=== PATIENT | female | born 1950 | race Caucasian/White ===

== ENCOUNTER 2019-02-19 18:23 | Inpatient (IN) | payer OTHER ==
[~2019-02-19] VITALS: Ht 160 cm; Wt 54.1 kg
[2019-02-19] MEDS ORDERED: ACETAMINOPHEN 325 MG TABLET PO PRN (18:30)
[2019-02-19] MEDS ORDERED: METHYL SALICYLATE/MENTHOL TOPICAL OINTMENT 57GM TUBE. TP PRN (18:30)
[2019-02-19] MEDS ORDERED: MAGNESIUM HYDROXIDE 2,400 MG/30 ML ORAL.SUSP. PO PRN (18:30)
[2019-02-19] MEDS ORDERED: TRAM50TA PO (18:42)
[2019-02-19] MEDS ORDERED: FAMO20TA5 PO (18:42)
[2019-02-19] MEDS ORDERED: PNV1TABL31 PO (18:42)
[2019-02-19] MEDS ORDERED: traZODone 50 MG TABLET. PO PRN ×2 (19:45→20:00)
[2019-02-19 23:11] LABS: BILIRUBIN,URINE NEG (NEG); CLARITY,URINE CLOUDY; COLOR,URINE STRAW; GLUCOSE,URINE NEG (NEG)
[2019-02-19 23:12] LABS: BACTERIA,URINE MANY /HPF (0-FEW); NITRITE,URINE NEG (NEG); SQUAMOUS EPITHELIAL CELL,UR FEW /LPF; UROBILINOGEN,URINE 0.2 mg/dL (0.2 mg/dL)
--- NOTE | 2019-02-19 23:16 | PDOC ---
Exam Note: Chetan Note: Please also refer to the separate dictated note~for this date of service dictated separately. Discussed the patient with Nursing staff reviewed the chart.~Reviewed interim history and current functioning. Reviewed vital signs,~Labs/ Radiology~and current medications noted below. Continue current treatment with the changes noted in the dictated addendum note Assessment: Labs: Laboratory Tests Test 02/19/19 20:01 Urine Collection Type Unknown Urine Color Straw Urine Clarity Cloudy Urine pH 6.0 Urine Specific [place] 1.010 Urine Protein 30 mg/dl (NEG-TRACE) Urine Glucose (UA) Neg mg/dL (NEG) Urine Ketones (Stick) Neg mg/dL (NEG) Urine Blood Small (NEG) Urine Nitrite Neg (NEG) Urine Bilirubin Neg (NEG) Urine Urobilinogen Dipstick 0.2 mg/dL (0.2 mg/dL) Urine Leukocyte Esterase Trace (NEG) Urine RBC 3-5 /HPF (0-2) Urine WBC 5-10 /HPF (0-4) Urine Squamous Epithelial Cells Few /LPF Urine Bacteria Many /HPF (0-FEW) Urine Mucus Slight /LPF Current Medications: Meds: Current Medications Medications (Trade) Dose Ordered Sig/Valerie Route PRN Reason Start Time Stop Time Status Last Admin Dose Admin Oxcarbazepine (Trileptal) 300 mg HS PO 02/19/19 21:00 02/19/19 20:18 I have reviewed the current psychotropics carefully including drug interactions. Risk benefit ratio favors no change other than as noted in my dictated progress note. Diagnosis: Problems: (1) Anxiety disorder (2) Bipolar 1 disorder, mixed, moderate (3) Impulse control disorder (4) Psychosis, atypical LADARIUS STANLEY MD Feb 19, 2019 23:16
[2019-02-19 23:17] VITALS: BP 135/85
[2019-02-20 05:53] VITALS: BP 128/81
[2019-02-20] MEDS: PRENATAL MULTIVITAMIN TABLET. PO SCH (08:10)
[2019-02-20] MEDS: FAMOTIDINE 20 MG TABLET PO SCH (08:10)
[2019-02-20 08:44] LABS: BASO # 0.3 x10^3/uL (0.0-0.2); BASO % 4 % (0-3); EOS # 0.2 x10^3/uL (0.0-0.7); EOS % 3 % (0-3); HEMATOCRIT 36.5 % (36.0-47.0); HEMOGLOBIN 11.7 g/dL (12.0-15.5); LYMPH # 1.8 x10^3/uL (1.0-4.8); LYMPH % 23 % (24-48); MEAN CORPUSCULAR HEMOGLOBIN 29 pg (25-35); MEAN CORPUSCULAR HGB CONC 32 g/dL (31-37); MEAN CORPUSCULAR VOLUME 91 fL (79-100); MONO # 0.5 x10^3/uL (0.0-1.1); MONO % 7 % (0-9); NEUT # 5.2 x10^3uL (1.8-7.7); NEUT % 64 % (31-73); PLATELET COUNT 285 x10^3/uL (140-400); RED BLOOD COUNT 4.03 x10^6/uL (3.50-5.40); RED CELL DISTRIBUTION WIDTH 15.9 % (11.5-14.5); WHITE BLOOD COUNT 8.1 x10^3/uL (4.0-11.0)
[2019-02-20 09:03] LABS: ALBUMIN 3.2 g/dL (3.4-5.0); ALBUMIN/GLOBULIN RATIO 0.8 (1.0-1.7); CALCIUM 9.2 mg/dL (8.5-10.1); CREATININE 1.9 mg/dL (0.6-1.0); GFR 26.1; TOTAL BILIRUBIN 0.3 mg/dL (0.2-1.0); TOTAL PROTEIN 7.3 g/dL (6.4-8.2)
[2019-02-20] MEDS: traMADol 50 MG TABLET PO PRN (09:57)
[2019-02-20 12:06] LABS: THYROXINE 5.6 ug/dL (4.5-12.0)
[2019-02-20 12:20] LABS: THYROID STIM HORMONE (TSH) 2.285 uIU/mL (0.358-3.740)
[2019-02-20 15:44] VITALS: BP 126/77
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
--- NOTE | 2019-02-20 20:34 | PDOC ---
Exam Note: Chetan Note: Please also refer to the separate dictated note~for this date of service dictated separately.~Patient seen individually. Discussed the patient with Nursing staff reviewed the chart.~Reviewed interim history and current functioning. Reviewed vital signs,~Labs/ Radiology~and current medications noted below. Continue current treatment with the changes noted in the dictated addendum note Assessment: Vital Signs/I&O: Vital Signs Date Time Temp Pulse Resp B/P (MAP) Pulse Ox O2 Delivery O2 Flow Rate FiO2 02/20/19 15:44 97.6 71 18 126/77 (93) 96 02/20/19 05:53 Room Air I & O 02/19/19 02/19/19 02/20/19 15:00 23:00 07:00 Intake Total 120 ml Balance 120 ml Labs: Laboratory Tests Test 02/20/19 07:45 White Blood Count 8.1 x10^3/uL (4.0-11.0) Red Blood Count 4.03 x10^6/uL (3.50-5.40) Hemoglobin 11.7 g/dL (12.0-15.5) L Hematocrit 36.5 % (36.0-47.0) Mean Corpuscular Volume 91 fL (79-100) Mean Corpuscular Hemoglobin 29 pg (25-35) Mean Corpuscular Hemoglobin Concent 32 g/dL (31-37) Red Cell Distribution Width 15.9 % (11.5-14.5) H Platelet Count 285 x10^3/uL (140-400) Neutrophils (%) (Auto) 64 % (31-73) Lymphocytes (%) (Auto) 23 % (24-48) L Monocytes (%) (Auto) 7 % (0-9) Eosinophils (%) (Auto) 3 % (0-3) Basophils (%) (Auto) 4 % (0-3) H Neutrophils # (Auto) 5.2 x10^3uL (1.8-7.7) Lymphocytes # (Auto) 1.8 x10^3/uL (1.0-4.8) Monocytes # (Auto) 0.5 x10^3/uL (0.0-1.1) Eosinophils # (Auto) 0.2 x10^3/uL (0.0-0.7) Basophils # (Auto) 0.3 x10^3/uL (0.0-0.2) H Sodium Level 148 mmol/L (136-145) H Potassium Level 4.0 mmol/L (3.5-5.1) Chloride Level 112 mmol/L (98-107) H Carbon Dioxide Level 23 mmol/L (21-32) Anion Gap 13 (6-14) Blood Urea Nitrogen 33 mg/dL (7-20) H Creatinine 1.9 mg/dL (0.6-1.0) H Estimated GFR (Cockcroft-Gault) 26.1 BUN/Creatinine Ratio 17 (6-20) Glucose Level 119 mg/dL (70-99) H Calcium Level 9.2 mg/dL (8.5-10.1) Magnesium Level 2.0 mg/dL (1.8-2.4) Iron Level 86 ug/dL (50-170) Total Iron Binding Capacity 232 ug/dL (250-450) L Iron Saturation 37 % (15-34) H Total Bilirubin 0.3 mg/dL (0.2-1.0) Aspartate Amino Transferase (AST) 16 U/L (15-37) Alanine Aminotransferase (ALT) 11 U/L (14-59) L Alkaline Phosphatase 99 U/L (46-116) Total Protein 7.3 g/dL (6.4-8.2) Albumin 3.2 g/dL (3.4-5.0) L Albumin/Globulin Ratio 0.8 (1.0-1.7) L Triglycerides Level 58 mg/dL (0-150) Cholesterol Level 166 mg/dL (0-200) LDL Cholesterol, Calculated 97 mg/dL (0-100) VLDL Cholesterol, Calculated 11 mg/dL (0-40) Non-HDL Cholesterol Calculated 108 mg/dL (0-129) HDL Cholesterol 58 mg/dL (40-60) Cholesterol/HDL Ratio 2.0 Thyroid Stimulating Hormone (TSH) 2.285 uIU/mL (0.358-3.740) Thyroxine (T4) 5.6 ug/dL (4.5-12.0) Total Triiodothyronine (TT3) 76 ng/dL (71-180) Current Medications: Meds: Current Medications Medications (Trade) Dose Ordered Sig/Valerie Route PRN Reason Start Time Stop Time Status Last Admin Dose Admin Famotidine (Pepcid) 20 mg DAILY PO 02/20/19 09:00 02/20/19 08:10 Multivit/ Folic Acid/Iron (Multivitamin ) 1 tab DAILY PO 02/20/19 09:00 02/20/19 08:10 Oxcarbazepine (Trileptal) 300 mg HS PO 02/19/19 21:00 02/20/19 19:28 I have reviewed the current psychotropics carefully including drug interactions. Risk benefit ratio favors no change other than as noted in my dictated progress note. Diagnosis: Problems: (1) Anxiety disorder (2) Bipolar 1 disorder, mixed, moderate (3) Impulse control disorder (4) Psychosis, atypical LADARIUS STANLEY MD Feb 20, 2019 20:34
[2019-02-20 23:11] LABS: HEMOGLOBIN A1C 5.6 % (4.8-5.6)
--- NOTE | 2019-02-21 03:29 | PN ---
DATE: 02/20/2019 PSYCHIATRIC PROGRESS NOTE This note covers elements not covered in my initial note of 02/20/2019. SUBJECTIVE: I met with the patient evening of 02/20/2019. Overall, the patient remains somewhat anxious, restless, at times withdrawn. REVIEW OF SYSTEMS: No CV, , pulmonary, eye system symptoms on review. MENTAL STATUS EXAM: Reasonably oriented. Speech is coherent, abstraction fair, computation impaired, language function intact, attention span short. Mood and affect remain somewhat withdrawn. LABORATORY DATA: Reviewed. IMPRESSION: Bipolar disorder, mixed with psychotic features; anxiety disorder, unspecified. Rest unchanged. PLAN: Continue Trileptal and the rest of the psychotropics as mentioned previously in past psychiatric records, then decide on further interventions. MAN Olivia STANLEY MD DR: SHANTEL/laura JOB#: [id number] / [id number]
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
[2019-02-21 05:25] VITALS: BP 123/77
[2019-02-21] MEDS: PRENATAL MULTIVITAMIN TABLET. PO SCH (07:57)
[2019-02-21] MEDS: FAMOTIDINE 20 MG TABLET PO SCH (07:57)
[2019-02-21] MEDS: traMADol 50 MG TABLET PO PRN ×2 (08:25→17:50)
[2019-02-21] MEDS: MAG HYDROX/AL HYDROX/SIMETH 30 ML ORAL.SUSP PO PRN (09:32)
[2019-02-21] MEDS ORDERED: TROLAMINE SALICYLATE 10% TOPICAL CREAM 85GM JAR. TP PRN ×3 (10:00→22:38)
[2019-02-21 16:21] VITALS: BP 128/79
--- NOTE | 2019-02-21 20:33 | PDOC ---
Exam Note: Chetan Note: Please also refer to the separate dictated note~for this date of service dictated separately.~Patient seen individually. Discussed the patient with Nursing staff reviewed the chart.~Reviewed interim history and current functioning. Reviewed vital signs,~Labs/ Radiology~and current medications noted below. Continue current treatment with the changes noted in the dictated addendum note Assessment: Vital Signs/I&O: Vital Signs Date Time Temp Pulse Resp B/P (MAP) Pulse Ox O2 Delivery O2 Flow Rate FiO2 02/21/19 18:50 100 Room Air 02/21/19 16:21 98.3 88 18 128/79 (95) I & O 02/20/19 02/20/19 02/21/19 15:00 23:00 07:00 Intake Total 480 ml 480 ml Balance 480 ml 480 ml Current Medications: Meds: Current Medications Medications (Trade) Dose Ordered Sig/Valerie Route PRN Reason Start Time Stop Time Status Last Admin Dose Admin Trolamine Salicylate (Myoplex) 1 adam PRN TID PRN TP ARTHRITIS PAIN 02/21/19 10:00 02/21/19 16:01 I have reviewed the current psychotropics carefully including drug interactions. Risk benefit ratio favors no change other than as noted in my dictated progress note. Diagnosis: Problems: (1) Anxiety disorder (2) Bipolar 1 disorder, mixed, moderate (3) Impulse control disorder (4) Psychosis, atypical LADARIUS STANLEY MD Feb 21, 2019 20:33
[2019-02-22 05:08] VITALS: BP 138/84
[2019-02-22] MEDS: PRENATAL MULTIVITAMIN TABLET. PO SCH (07:58)
[2019-02-22] MEDS: FAMOTIDINE 20 MG TABLET PO SCH (07:58)
[2019-02-22 16:13] VITALS: BP 146/89
--- NOTE | 2019-02-22 20:37 | PDOC ---
Exam Note: Chetan Note: Please also refer to the separate dictated note~for this date of service dictated separately.~Patient seen individually. Discussed the patient with Nursing staff reviewed the chart.~Reviewed interim history and current functioning. Reviewed vital signs,~Labs/ Radiology~and current medications noted below. Continue current treatment with the changes noted in the dictated addendum note Assessment: Vital Signs/I&O: Vital Signs Date Time Temp Pulse Resp B/P (MAP) Pulse Ox O2 Delivery O2 Flow Rate FiO2 02/22/19 16:13 98.4 99 16 146/89 (108) 98 02/21/19 18:50 Room Air I & O 02/21/19 02/21/19 02/22/19 15:00 23:00 07:00 Intake Total 960 ml 480 ml Balance 960 ml 480 ml Current Medications: I have reviewed the current psychotropics carefully including drug interactions. Risk benefit ratio favors no change other than as noted in my dictated progress note. Diagnosis: Problems: (1) Anxiety disorder (2) Bipolar 1 disorder, mixed, moderate (3) Impulse control disorder (4) Psychosis, atypical LADARIUS STANLEY MD Feb 22, 2019 20:37
[2019-02-22] MEDS: CHLORHEXIDINE 0.12% 15 ML MOUTHWASH. SWSP SCH (20:46)
[2019-02-23 05:20] VITALS: BP 149/81
[2019-02-23] MEDS: PRENATAL MULTIVITAMIN TABLET. PO SCH (08:22)
[2019-02-23] MEDS: FAMOTIDINE 20 MG TABLET PO SCH (08:22)
[2019-02-23] MEDS: CHLORHEXIDINE 0.12% 15 ML MOUTHWASH. SWSP SCH ×2 (08:22→20:37)
[2019-02-23] MEDS: traMADol 50 MG TABLET PO PRN ×2 (08:40→20:37)
[2019-02-23] MEDS ORDERED: levoFLOXacin 500 MG TABLET PO SCH (09:00)
[2019-02-23] MEDS: LACTOBACILLUS RHAMNOSUS GG 1 CAPSULE. PO SCH ×2 (11:09→20:36)
[2019-02-23 15:47] VITALS: BP 114/62
[2019-02-23] MEDS: QUEtiapine 25 MG TABLET. PO SCH (20:36)
--- NOTE | 2019-02-23 20:42 | PDOC ---
Exam Note: Chetan Note: Please also refer to the separate dictated note~for this date of service dictated separately.~Patient seen individually. Discussed the patient with Nursing staff reviewed the chart.~Reviewed interim history and current functioning. Reviewed vital signs,~Labs/ Radiology~and current medications noted below. Continue current treatment with the changes noted in the dictated addendum note Assessment: Vital Signs/I&O: Vital Signs Date Time Temp Pulse Resp B/P (MAP) Pulse Ox O2 Delivery O2 Flow Rate FiO2 02/23/19 20:37 18 Room Air 02/23/19 15:47 98.1 87 114/62 (79) 98 I & O 02/22/19 02/22/19 02/23/19 15:00 23:00 07:00 Intake Total 840 ml 240 ml 240 ml Balance 840 ml 240 ml 240 ml Current Medications: Meds: Current Medications Medications (Trade) Dose Ordered Sig/Valerie Route PRN Reason Start Time Stop Time Status Last Admin Dose Admin Chlorhexidine Gluconate (Peridex) 15 ml BID SWSP 02/22/19 21:00 02/23/19 20:37 Levofloxacin (Levaquin) 500 mg DAILY06 PO 02/23/19 09:00 02/23/19 08:57 DC 02/23/19 08:40 Lactobacillus Rhamnosus (Culturelle) 1 cap BID PO 02/23/19 09:00 02/23/19 20:36 Quetiapine Fumarate (SEROquel) 25 mg QHS PO 02/23/19 21:00 02/23/19 20:36 I have reviewed the current psychotropics carefully including drug interactions. Risk benefit ratio favors no change other than as noted in my dictated progress note. Diagnosis: Problems: (1) Anxiety disorder (2) Bipolar 1 disorder, mixed, moderate (3) Impulse control disorder (4) Psychosis, atypical LADARIUS STANLEY MD Feb 23, 2019 20:42
[2019-02-23] MEDS ORDERED: LACTOBACILLUS RHAMNOSUS GG 1 CAPSULE. PO SCH (21:00)
--- NOTE | 2019-02-24 02:16 | PN ---
DATE: 02/21/2019 PSYCHIATRIC PROGRESS NOTE This late entry, 02/21/2019, covers elements not covered in my initial note. SUBJECTIVE: Per Mariama RN, the patient slept reasonably previous night. She is doing about the same. Social, did attend physical therapy, complains of pain, received Ultram in the morning and Aspercreme. REVIEW OF SYSTEMS: No CV, , pulmonary, eye system symptoms on review. MENTAL STATUS EXAM: Reasonably oriented. Speech coherent, can be little pressured. Abstraction fair, computation impaired, language function intact, attention span short. Mood and affect remain somewhat anxious, dysphoric at times, obsessing about circumstances prompting admission and does not feel safe returning home with her significant other. LABORATORY DATA: Reviewed. IMPRESSION: Bipolar disorder, mixed; anxiety disorder, unspecified. Rest unchanged. PLAN: No change from initial note. May need to increase Trileptal further gradually. LADARIUS STANLEY MD DR: SHANTEL/laura JOB#: [id number] / [id number]
--- NOTE | 2019-02-24 02:53 | PN ---
DATE: 02/22/2019 PSYCHIATRIC PROGRESS NOTE This late entry 02/22/2019 covers elements not covered in my initial note. SUBJECTIVE: I met with the patient evening of 02/22/2019. The patient slept 6-3/4 hours previous night. She does have a UTI on 100,000 E. coli and is being started on Levaquin for this. She had many questions about Trileptal making her sedated during the day, felt there was an interaction with her Ultram and her other medications, refusing to take it. I had a lengthy discussion with her, but for now we will stop it. REVIEW OF SYSTEMS: No CV, , pulmonary, eye system symptoms on review, does complain of pain as noted. MENTAL STATUS EXAM: Reasonably oriented. Speech coherent, abstraction fair, computation impaired. Mood is somewhat tearful, anxious. No active suicidal or homicidal ideation. LABORATORY DATA: Reviewed. IMPRESSION: Unchanged from initial note. PLAN: As noted above, stop the Trileptal. Treat the UTI. Consider Seroquel as a mood stabilizer. We will reassess on February 23. LADARIUS STANLEY MD DR: SHANTEL/laura JOB#: [id number] / [id number]
[2019-02-24 05:58] VITALS: BP 127/82
[2019-02-24] MEDS: levoFLOXacin 250 MG TABLET PO SCH (06:02)
[2019-02-24] MEDS: LACTOBACILLUS RHAMNOSUS GG 1 CAPSULE. PO SCH ×2 (08:02→19:31)
[2019-02-24] MEDS: FAMOTIDINE 20 MG TABLET PO SCH (08:03)
[2019-02-24] MEDS: CHLORHEXIDINE 0.12% 15 ML MOUTHWASH. SWSP SCH ×2 (08:03→19:31)
[2019-02-24] MEDS: PRENATAL MULTIVITAMIN TABLET. PO SCH (08:03)
[2019-02-24] MEDS: traMADol 50 MG TABLET PO PRN ×2 (08:03→20:06)
[2019-02-24 16:17] VITALS: BP 125/75
[2019-02-24] MEDS: QUEtiapine 25 MG TABLET. PO SCH (19:31)
[2019-02-24] MEDS: MAG HYDROX/AL HYDROX/SIMETH 30 ML ORAL.SUSP PO PRN (19:39)
--- NOTE | 2019-02-24 20:53 | PDOC ---
Exam Note: Chetan Note: Please also refer to the separate dictated note~for this date of service dictated separately.~Patient seen individually. Discussed the patient with Nursing staff reviewed the chart.~Reviewed interim history and current functioning. Reviewed vital signs,~Labs/ Radiology~and current medications noted below. Continue current treatment with the changes noted in the dictated addendum note Assessment: Vital Signs/I&O: Vital Signs Date Time Temp Pulse Resp B/P (MAP) Pulse Ox O2 Delivery O2 Flow Rate FiO2 02/24/19 20:06 Room Air 02/24/19 16:17 97.5 89 14 125/75 (92) 98 I & O 02/23/19 02/23/19 02/24/19 15:00 23:00 07:00 Intake Total 720 ml 360 ml Balance 720 ml 360 ml Current Medications: Meds: Current Medications Medications (Trade) Dose Ordered Sig/Valerie Route PRN Reason Start Time Stop Time Status Last Admin Dose Admin Levofloxacin (Levaquin) 250 mg DAILY06 PO 02/24/19 06:00 02/27/19 06:00 02/24/19 06:02 Quetiapine Fumarate (SEROquel) 25 mg QHS PO 02/23/19 21:00 02/24/19 19:31 I have reviewed the current psychotropics carefully including drug interactions. Risk benefit ratio favors no change other than as noted in my dictated progress note. Diagnosis: Problems: (1) Anxiety disorder (2) Bipolar 1 disorder, mixed, moderate (3) Impulse control disorder (4) Psychosis, atypical LADARIUS STANLEY MD Feb 24, 2019 20:53
[2019-02-25] MEDS: levoFLOXacin 250 MG TABLET PO SCH (05:48)
[2019-02-25] MEDS: traMADol 50 MG TABLET PO PRN ×2 (05:49→20:37)
[2019-02-25 06:01] VITALS: BP 121/82
[2019-02-25] MEDS: LACTOBACILLUS RHAMNOSUS GG 1 CAPSULE. PO SCH ×2 (08:05→20:36)
[2019-02-25] MEDS: CHLORHEXIDINE 0.12% 15 ML MOUTHWASH. SWSP SCH ×2 (08:05→20:38)
[2019-02-25] MEDS: PRENATAL MULTIVITAMIN TABLET. PO SCH (08:05)
[2019-02-25] MEDS: FAMOTIDINE 20 MG TABLET PO SCH (08:05)
[2019-02-25 16:02] VITALS: BP 127/82
--- NOTE | 2019-02-25 20:26 | PDOC ---
Exam Note: Chetan Note: Please also refer to the separate dictated note~for this date of service dictated separately.~Patient seen individually. Discussed the patient with Nursing staff reviewed the chart.~Reviewed interim history and current functioning. Reviewed vital signs,~Labs/ Radiology~and current medications noted below. Continue current treatment with the changes noted in the dictated addendum note Assessment: Vital Signs/I&O: Vital Signs Date Time Temp Pulse Resp B/P (MAP) Pulse Ox O2 Delivery O2 Flow Rate FiO2 02/25/19 16:02 97.9 95 16 127/82 (97) 97 02/24/19 20:06 Room Air I & O 02/24/19 02/24/19 02/25/19 15:00 23:00 07:00 Intake Total 480 ml 240 ml 420 ml Balance 480 ml 240 ml 420 ml Current Medications: I have reviewed the current psychotropics carefully including drug interactions. Risk benefit ratio favors no change other than as noted in my dictated progress note. Diagnosis: Problems: (1) Anxiety disorder (2) Bipolar 1 disorder, mixed, moderate (3) Impulse control disorder (4) Psychosis, atypical LADARIUS STANLEY MD Feb 25, 2019 20:26
[2019-02-25] MEDS: QUEtiapine 25 MG TABLET. PO SCH (20:37)
--- NOTE | 2019-02-26 01:11 | PN ---
DATE: 02/23/2019 PSYCHIATRIC PROGRESS NOTE This late entry 02/23/2019 covers the elements not covered in my initial note. SUBJECTIVE: I met with the patient in the evening of 02/23/2019. The patient slept 6-3/4 hours previous night per PALMIRA Cook. At times, she has been somewhat tearful. We did stop the Trileptal because of complaints of daytime sedation and I had a lengthy discussion with her about this. REVIEW OF SYSTEMS: No CV, , pulmonary, eye system symptoms on review. MENTAL STATUS EXAM: The patient is reasonably oriented. Speech is coherent, abstraction fair, computation impaired, language function intact. She is still expressed a lot of apprehension about returning home with her significant other, since she has significant concerns by social service staff on this arrangement. There is a question she may be evicted as well. REVIEW OF SYSTEMS: No CV, , pulmonary, eye system symptoms on review. MENTAL STATUS EXAM: Speech coherent, abstraction fair, computation impaired. Mood is somewhat dysphoric, anxious. No active suicidal or homicidal ideation. LABORATORY DATA: Reviewed. IMPRESSION: Unchanged from initial note. PLAN: Given the mood lability; history of bipolar disorder, mild paranoia, we will go ahead and start her on Seroquel 25 mg at bedtime and adjust as clinically indicated. MAN Olivia STANLEY MD DR: SHANTEL/laura JOB#: [id number] / [id number]
--- NOTE | 2019-02-26 01:22 | PN ---
DATE: 02/24/2019 PSYCHIATRIC PROGRESS NOTE This late entry 02/24/2019 covers the elements not covered in my initial note. SUBJECTIVE: I met with the patient in the evening of 02/24/2019 and staffed a treatment team meeting with the entire team morning of 02/24/2019. Appetite 100%, sleeping 6-7 hours, somewhat anxious, social service staff described interaction with the patient's significant other and placement options being assessed by social service staff including outpatient treatment options. REVIEW OF SYSTEMS: No CV, , pulmonary, eye system symptoms on review. MENTAL STATUS EXAM: Reasonably oriented. Speech is coherent, abstraction fair, computation impaired, language function intact. Mood is somewhat dysphoric. No suicidal ideation. LABORATORY DATA: Reviewed. IMPRESSION: Bipolar disorder, unspecified; anxiety disorder, unspecified. Rest unchanged. PLAN: Continue Seroquel 25 mg at bedtime, may need to increase this if clinically indicated. MAN Olivia STANLEY MD DR: SHANTEL/laura JOB#: [id number] / [id number]
[2019-02-26 05:34] VITALS: BP 116/74
[2019-02-26] MEDS: levoFLOXacin 250 MG TABLET PO SCH (05:47)
[2019-02-26] MEDS: FAMOTIDINE 20 MG TABLET PO SCH (08:15)
[2019-02-26] MEDS: CHLORHEXIDINE 0.12% 15 ML MOUTHWASH. SWSP SCH ×2 (08:15→20:24)
[2019-02-26] MEDS: LACTOBACILLUS RHAMNOSUS GG 1 CAPSULE. PO SCH ×2 (08:16→20:24)
[2019-02-26] MEDS: PRENATAL MULTIVITAMIN TABLET. PO SCH (08:16)
[2019-02-26] MEDS ORDERED: ONDANSETRON ODT 4 MG TAB.RAPDIS PO PRN (10:45)
[2019-02-26 15:47] VITALS: BP 129/82
[2019-02-26] MEDS: QUEtiapine 25 MG TABLET. PO SCH (20:24)
[2019-02-26] MEDS: traMADol 50 MG TABLET PO PRN (20:27)
[2019-02-27 06:01] VITALS: BP 136/76
[2019-02-27] MEDS: levoFLOXacin 250 MG TABLET PO SCH (06:02)
[2019-02-27] MEDS: traMADol 50 MG TABLET PO PRN (06:02)
[2019-02-27 07:26] LABS: BASO % 1 % (0-3); EOS # 0.2 x10^3/uL (0.0-0.7); EOS % 2 % (0-3); HEMATOCRIT 36.6 % (36.0-47.0); HEMOGLOBIN 11.9 g/dL (12.0-15.5); LYMPH # 2.3 x10^3/uL (1.0-4.8); LYMPH % 27 % (24-48); MEAN CORPUSCULAR HEMOGLOBIN 30 pg (25-35); MEAN CORPUSCULAR HGB CONC 33 g/dL (31-37); MEAN CORPUSCULAR VOLUME 91 fL (79-100); MONO # 0.5 x10^3/uL (0.0-1.1); MONO % 6 % (0-9); NEUT # 5.4 x10^3uL (1.8-7.7); NEUT % 63 % (31-73); PLATELET COUNT 277 x10^3/uL (140-400); RED BLOOD COUNT 4.03 x10^6/uL (3.50-5.40); RED CELL DISTRIBUTION WIDTH 16.5 % (11.5-14.5); WHITE BLOOD COUNT 8.5 x10^3/uL (4.0-11.0)
[2019-02-27 07:45] LABS: ALBUMIN 3.2 g/dL (3.4-5.0); ALBUMIN/GLOBULIN RATIO 0.8 (1.0-1.7); CALCIUM 8.8 mg/dL (8.5-10.1); CREATININE 2.4 mg/dL (0.6-1.0); POTASSIUM 4.6 mmol/L (3.5-5.1); TOTAL BILIRUBIN 0.3 mg/dL (0.2-1.0); TOTAL PROTEIN 7.2 g/dL (6.4-8.2)
[2019-02-27] MEDS: PRENATAL MULTIVITAMIN TABLET. PO SCH (08:29)
[2019-02-27] MEDS: CHLORHEXIDINE 0.12% 15 ML MOUTHWASH. SWSP SCH ×2 (08:29→20:27)
[2019-02-27] MEDS: FAMOTIDINE 20 MG TABLET PO SCH (08:30)
[2019-02-27] MEDS: LACTOBACILLUS RHAMNOSUS GG 1 CAPSULE. PO SCH ×2 (08:30→20:27)
[2019-02-27 16:12] VITALS: BP 115/68
[2019-02-27] MEDS ORDERED: IV DEXTROSE 5% 1,000 ML IV SCH (17:30)
[2019-02-27] MEDS: IV DEXTROSE 5% 1,000 ML IV SCH (20:00)
[2019-02-27] MEDS: QUEtiapine 25 MG TABLET. PO SCH (20:27)
--- NOTE | 2019-02-27 21:52 | PDOC ---
Exam Note: Chetan Note: This is a late entry for DOS 02/26/2019. Please also refer to the separate dictated note~for this date of service dictated separately.~Patient seen individually. Discussed the patient with Nursing staff reviewed the chart.~Reviewed interim history and current functioning. Reviewed vital signs,~Labs/ Radiology~and current medications noted below. Continue current treatment with the changes noted in the dictated addendum note Assessment: Vital Signs/I&O: Vital Signs Date Time Temp Pulse Resp B/P (MAP) Pulse Ox O2 Delivery O2 Flow Rate FiO2 02/27/19 16:12 98.2 84 18 115/68 (84) 99 02/27/19 06:02 Room Air I & O 02/26/19 02/26/19 02/27/19 15:00 23:00 07:00 Intake Total 480 ml 480 ml 240 ml Balance 480 ml 480 ml 240 ml Labs: Laboratory Tests Test 02/27/19 07:05 White Blood Count 8.5 x10^3/uL (4.0-11.0) Red Blood Count 4.03 x10^6/uL (3.50-5.40) Hemoglobin 11.9 g/dL (12.0-15.5) L Hematocrit 36.6 % (36.0-47.0) Mean Corpuscular Volume 91 fL (79-100) Mean Corpuscular Hemoglobin 30 pg (25-35) Mean Corpuscular Hemoglobin Concent 33 g/dL (31-37) Red Cell Distribution Width 16.5 % (11.5-14.5) H Platelet Count 277 x10^3/uL (140-400) Neutrophils (%) (Auto) 63 % (31-73) Lymphocytes (%) (Auto) 27 % (24-48) Monocytes (%) (Auto) 6 % (0-9) Eosinophils (%) (Auto) 2 % (0-3) Basophils (%) (Auto) 1 % (0-3) Neutrophils # (Auto) 5.4 x10^3uL (1.8-7.7) Lymphocytes # (Auto) 2.3 x10^3/uL (1.0-4.8) Monocytes # (Auto) 0.5 x10^3/uL (0.0-1.1) Eosinophils # (Auto) 0.2 x10^3/uL (0.0-0.7) Basophils # (Auto) 0.0 x10^3/uL (0.0-0.2) Sodium Level 151 mmol/L (136-145) H Potassium Level 4.6 mmol/L (3.5-5.1) Chloride Level 115 mmol/L (98-107) H Carbon Dioxide Level 27 mmol/L (21-32) Anion Gap 9 (6-14) Blood Urea Nitrogen 50 mg/dL (7-20) H Creatinine 2.4 mg/dL (0.6-1.0) H Estimated GFR (Cockcroft-Gault) 20.0 BUN/Creatinine Ratio 21 (6-20) H Glucose Level 109 mg/dL (70-99) H Calcium Level 8.8 mg/dL (8.5-10.1) Total Bilirubin 0.3 mg/dL (0.2-1.0) Aspartate Amino Transferase (AST) 14 U/L (15-37) L Alanine Aminotransferase (ALT) 16 U/L (14-59) Alkaline Phosphatase 99 U/L (46-116) Total Protein 7.2 g/dL (6.4-8.2) Albumin 3.2 g/dL (3.4-5.0) L Albumin/Globulin Ratio 0.8 (1.0-1.7) L Current Medications: Meds: Current Medications Medications (Trade) Dose Ordered Sig/Valerie Route PRN Reason Start Time Stop Time Status Last Admin Dose Admin Dextrose 1,000 ml @ 100 mls/hr Q10H IV 02/27/19 20:00 02/27/19 20:00 I have reviewed the current psychotropics carefully including drug interactions. Risk benefit ratio favors no change other than as noted in my dictated progress note. Diagnosis: Problems: (1) Anxiety disorder (2) Bipolar 1 disorder, mixed, moderate (3) Impulse control disorder (4) Psychosis, atypical LADARIUS STANLEY MD Feb 27, 2019 21:52
[2019-02-28] MEDS ORDERED: ACET325T9 PO (01:49)
[2019-02-28] MEDS ORDERED: CHLO118L3 TP (01:53)
[2019-02-28] MEDS ORDERED: LACT1CAP19 PO (01:55)
[2019-02-28] MEDS ORDERED: MAG30ORA2 PO (02:36)
[2019-02-28] MEDS ORDERED: MAGN2400 PO (02:39)
[2019-02-28] MEDS ORDERED: METH57CR17 TP (02:41)
[2019-02-28] MEDS ORDERED: OLAN5TAB9 PO (02:44)
[2019-02-28] MEDS ORDERED: ONDA4TAB12 PO (02:46)
[2019-02-28] MEDS ORDERED: QUET25TA5 PO (02:47)
[2019-02-28] MEDS ORDERED: TROL35.4 TP (02:48)
[2019-02-28] MEDS ORDERED: TRAM50TA PO (02:49)
[2019-02-28] MEDS ORDERED: TRAZ-120 PO (02:51)
[2019-02-28 05:55] VITALS: BP 118/75
[2019-02-28 07:18] LABS: CALCIUM 8.4 mg/dL (8.5-10.1); CREATININE 2.2 mg/dL (0.6-1.0); GFR 22.1; POTASSIUM 4.2 mmol/L (3.5-5.1)
[2019-02-28] MEDS: CHLORHEXIDINE 0.12% 15 ML MOUTHWASH. SWSP SCH ×2 (08:06→20:36)
[2019-02-28] MEDS: FAMOTIDINE 20 MG TABLET PO SCH (08:06)
[2019-02-28] MEDS: PRENATAL MULTIVITAMIN TABLET. PO SCH (08:06)
[2019-02-28] MEDS: LACTOBACILLUS RHAMNOSUS GG 1 CAPSULE. PO SCH ×2 (08:06→20:35)
[2019-02-28] MEDS: traMADol 50 MG TABLET PO PRN ×2 (09:42→20:36)
--- NOTE | 2019-02-28 12:09 | PN ---
DATE: 02/25/2019 PSYCHIATRIC PROGRESS NOTE This late entry 02/25/2019 covers elements not covered in my initial note. SUBJECTIVE: I met with the patient evening of 02/25/2019. Per PALMIRA Love, the patient slept 7 hours previous night. She has been in the day room attending groups and activities generally doing alright. Denies suicidal ideation. REVIEW OF SYSTEMS: No CV, , pulmonary, eye system symptoms on review. MENTAL STATUS EXAM: Reasonably oriented. Speech is coherent, abstraction fair, computation somewhat impaired, language function intact, attention span fair. Mood and affect is improved. LABORATORY DATA: Reviewed. IMPRESSION: Unchanged from initial note. PLAN: No change from initial note. Continue Seroquel 25 mg at bedtime. Rest unchanged. MAN Olivia STANLEY MD DR: SHANTEL/laura JOB#: [id number] / [id number]
[2019-02-28] MEDS: IV DEXTROSE 5% 1,000 ML IV SCH ×2 (14:02→16:00)
[2019-02-28 16:03] VITALS: BP 129/72
--- NOTE | 2019-02-28 20:25 | PDOC ---
Exam Note: Chetan Note: Please also refer to the separate dictated note~for this date of service dictated separately.~Patient seen individually. Discussed the patient with Nursing staff reviewed the chart.~Reviewed interim history and current functioning. Reviewed vital signs,~Labs/ Radiology~and current medications noted below. Continue current treatment with the changes noted in the dictated addendum note Assessment: Vital Signs/I&O: Vital Signs Date Time Temp Pulse Resp B/P (MAP) Pulse Ox O2 Delivery O2 Flow Rate FiO2 02/28/19 16:03 98.7 77 16 129/72 (91) 100 02/27/19 06:02 Room Air I & O 02/27/19 02/27/19 02/28/19 14:59 22:59 06:59 Intake Total 720 ml 720 ml Balance 720 ml 720 ml Labs: Laboratory Tests Test 02/28/19 06:48 Sodium Level 152 mmol/L (136-145) H Potassium Level 4.2 mmol/L (3.5-5.1) Chloride Level 118 mmol/L (98-107) H Carbon Dioxide Level 25 mmol/L (21-32) Anion Gap 9 (6-14) Blood Urea Nitrogen 40 mg/dL (7-20) H Creatinine 2.2 mg/dL (0.6-1.0) H Estimated GFR (Cockcroft-Gault) 22.1 Glucose Level 104 mg/dL (70-99) H Calcium Level 8.4 mg/dL (8.5-10.1) L Current Medications: I have reviewed the current psychotropics carefully including drug interactions. Risk benefit ratio favors no change other than as noted in my dictated progress note. Diagnosis: Problems: (1) Anxiety disorder (2) Bipolar 1 disorder, mixed, moderate (3) Impulse control disorder (4) Psychosis, atypical LADARIUS STANLEY MD Feb 28, 2019 20:25
[2019-02-28] MEDS: QUEtiapine 25 MG TABLET. PO SCH (20:35)
--- NOTE | 2019-03-01 03:12 | PN ---
DATE: 02/26/2019 PSYCHIATRIC PROGRESS NOTE This late entry 02/26/2019 covers elements not covered in my initial note. SUBJECTIVE: I met with the patient evening of 02/26/2019. The patient slept 7 hours previous night. Overall, she remains somewhat withdrawn, but is doing better. Mood is improved. Denies suicidal ideation. REVIEW OF SYSTEMS: No CV, , pulmonary, eye system symptoms on review. MENTAL STATUS EXAM: Reasonably oriented. Speech is coherent, abstraction fair, computation somewhat impaired. Mood and affect is improved. No suicidal ideation. LABORATORY DATA: Reviewed. IMPRESSION: Unchanged from initial note. PLAN: No change from initial note. MAN Olivia STANLEY MD DR: SHANTEL/laura JOB#: [id number] / [id number]
--- NOTE | 2019-03-01 03:17 | PN ---
DATE: 02/27/2019 PSYCHIATRIC PROGRESS NOTE This late entry 02/27/2019 covers elements not covered in my initial note. SUBJECTIVE: I met with the patient evening of 02/27/2019. The patient has been somewhat dehydrated, he is going to get some IV fluids per Dr. Okeefe and plan is still to transition to outpatient treatment starting 02/28/2019. REVIEW OF SYSTEMS: No CV, , pulmonary, eye system symptoms on review. MENTAL STATUS EXAM: Reasonably oriented. Speech is coherent, abstraction fair, computation impaired, language function intact. No suicidal ideation. Mood and affect is improved. LABORATORY DATA: Reviewed. IMPRESSION: Unchanged from initial note. PLAN: No change from initial note. MAN Olivia STANLEY MD DR: SHANTEL/laura JOB#: [id number] / [id number]
[2019-03-01 05:05] VITALS: BP 127/75
[2019-03-01 07:25] LABS: BASO % 0 % (0-3); EOS # 0.3 x10^3/uL (0.0-0.7); EOS % 4 % (0-3); HEMATOCRIT 34.6 % (36.0-47.0); HEMOGLOBIN 11.1 g/dL (12.0-15.5); LYMPH # 2.6 x10^3/uL (1.0-4.8); LYMPH % 31 % (24-48); MEAN CORPUSCULAR HEMOGLOBIN 30 pg (25-35); MEAN CORPUSCULAR HGB CONC 32 g/dL (31-37); MEAN CORPUSCULAR VOLUME 93 fL (79-100); MONO # 0.7 x10^3/uL (0.0-1.1); MONO % 8 % (0-9); NEUT # 4.7 x10^3uL (1.8-7.7); NEUT % 56 % (31-73); PLATELET COUNT 196 x10^3/uL (140-400); RED BLOOD COUNT 3.73 x10^6/uL (3.50-5.40); RED CELL DISTRIBUTION WIDTH 16.5 % (11.5-14.5); WHITE BLOOD COUNT 8.3 x10^3/uL (4.0-11.0)
[2019-03-01] MEDS: IV DEXTROSE 5% 1,000 ML IV SCH ×2 (07:42→11:09)
[2019-03-01 07:48] LABS: ALBUMIN 2.8 g/dL (3.4-5.0); ALBUMIN/GLOBULIN RATIO 0.8 (1.0-1.7); CALCIUM 8.4 mg/dL (8.5-10.1); CREATININE 1.8 mg/dL (0.6-1.0); GFR 27.8; POTASSIUM 4.4 mmol/L (3.5-5.1); TOTAL BILIRUBIN 0.3 mg/dL (0.2-1.0); TOTAL PROTEIN 6.2 g/dL (6.4-8.2)
[2019-03-01] MEDS: CHLORHEXIDINE 0.12% 15 ML MOUTHWASH. SWSP SCH ×2 (09:00→09:16)
[2019-03-01] MEDS: LACTOBACILLUS RHAMNOSUS GG 1 CAPSULE. PO SCH (09:16)
[2019-03-01] MEDS: FAMOTIDINE 20 MG TABLET PO SCH (09:16)
[2019-03-01] MEDS: PRENATAL MULTIVITAMIN TABLET. PO SCH (09:16)
[2019-03-01 15:48] VITALS: BP 133/81
--- NOTE | 2019-03-01 20:43 | PDOC ---
Exam Note: Chetan Note: Please also refer to the separate dictated note~for this date of service dictated separately.~Patient seen individually. Discussed the patient with Nursing staff reviewed the chart.~Reviewed interim history and current functioning. Reviewed vital signs,~Labs/ Radiology~and current medications noted below. Continue current treatment with the changes noted in the dictated addendum note Assessment: Vital Signs/I&O: Vital Signs Date Time Temp Pulse Resp B/P (MAP) Pulse Ox O2 Delivery O2 Flow Rate FiO2 03/01/19 15:48 98.5 81 18 133/81 (98) 98 03/01/19 05:05 Room Air I & O 02/28/19 02/28/19 03/01/19 15:00 23:00 07:00 Intake Total 840 ml 240 ml 240 ml Balance 840 ml 240 ml 240 ml Labs: Laboratory Tests Test 03/01/19 06:54 White Blood Count 8.3 x10^3/uL (4.0-11.0) Red Blood Count 3.73 x10^6/uL (3.50-5.40) Hemoglobin 11.1 g/dL (12.0-15.5) L Hematocrit 34.6 % (36.0-47.0) L Mean Corpuscular Volume 93 fL (79-100) Mean Corpuscular Hemoglobin 30 pg (25-35) Mean Corpuscular Hemoglobin Concent 32 g/dL (31-37) Red Cell Distribution Width 16.5 % (11.5-14.5) H Platelet Count 196 x10^3/uL (140-400) Neutrophils (%) (Auto) 56 % (31-73) Lymphocytes (%) (Auto) 31 % (24-48) Monocytes (%) (Auto) 8 % (0-9) Eosinophils (%) (Auto) 4 % (0-3) H Basophils (%) (Auto) 0 % (0-3) Neutrophils # (Auto) 4.7 x10^3uL (1.8-7.7) Lymphocytes # (Auto) 2.6 x10^3/uL (1.0-4.8) Monocytes # (Auto) 0.7 x10^3/uL (0.0-1.1) Eosinophils # (Auto) 0.3 x10^3/uL (0.0-0.7) Basophils # (Auto) 0.0 x10^3/uL (0.0-0.2) Sodium Level 149 mmol/L (136-145) H Potassium Level 4.4 mmol/L (3.5-5.1) Chloride Level 116 mmol/L (98-107) H Carbon Dioxide Level 25 mmol/L (21-32) Anion Gap 8 (6-14) Blood Urea Nitrogen 40 mg/dL (7-20) H Creatinine 1.8 mg/dL (0.6-1.0) H Estimated GFR (Cockcroft-Gault) 27.8 BUN/Creatinine Ratio 22 (6-20) H Glucose Level 99 mg/dL (70-99) Calcium Level 8.4 mg/dL (8.5-10.1) L Total Bilirubin 0.3 mg/dL (0.2-1.0) Aspartate Amino Transferase (AST) 15 U/L (15-37) Alanine Aminotransferase (ALT) 12 U/L (14-59) L Alkaline Phosphatase 88 U/L (46-116) Total Protein 6.2 g/dL (6.4-8.2) L Albumin 2.8 g/dL (3.4-5.0) L Albumin/Globulin Ratio 0.8 (1.0-1.7) L Current Medications: I have reviewed the current psychotropics carefully including drug interactions. Risk benefit ratio favors no change other than as noted in my dictated progress note. Diagnosis: Problems: (1) Anxiety disorder (2) Bipolar 1 disorder, mixed, moderate (3) Impulse control disorder (4) Psychosis, atypical LADARIUS STANLEY MD Mar 01, 2019 20:43
--- NOTE | 2019-03-02 14:38 | DS ---
DATE OF DISCHARGE: 03/01/2019 PSYCHIATRIC DISCHARGE SUMMARY This late entry 03/01/2019 covers elements not covered in my initial note. REASON FOR ADMISSION: Please refer to the admission history for details. Briefly, the patient is a 68-year-old female with a diagnosis of bipolar disorder referred from [facility] after she presented there with worsening symptoms of depression and a suicide plan to just walk into the traffic and wait to be hit by traffic. She had expressed homicidal ideation towards her significant other, placing a bag over his head or poisoning him. The police department were called to the residence for domestic disturbance. She was taken to the Emergency Room, noted to have a history of bipolar disorder untreated for some time, referred to us. SIGNIFICANT FINDINGS AND CLINICAL COURSE: Following admission, the patient was seen daily individually by myself from a psychiatric standpoint, medical followup with Dr. Okeefe. We reviewed her past records and she was initiated on treatment on Seroquel 25 mg p.o. at bedtime. She did have UTI, was treated on Levaquin. Gradually mood appeared to improve. She denied suicidal or homicidal ideation. She did have dehydration towards the end, which was significant and she was on IV fluids postponing the discharge by a day. REVIEW OF SYSTEMS: Prior to discharge on 03/01/2019, no CV, , pulmonary, eye system symptoms on review. MENTAL STATUS EXAM: The patient is reasonably oriented. Speech coherent, abstraction fair, computation impaired, language function intact. Mood and affect is improved. No suicidal or homicidal ideation at discharge. CONDITION AT DISCHARGE: Improved. FINAL DIAGNOSES: Bipolar disorder, depressed, in partial remission; history of major depressive disorder; anxiety disorder, unspecified. Rest unchanged from admission. DISCHARGE MEDICATIONS: Please refer to the MRAD. Outpatient psychiatric and medical followup is arranged. Time for discharge day management greater than 30 minutes. LADARIUS STANLEY MD DR: SHANTEL/laura JOB#: [id number] / [id number]
--- NOTE | 2019-03-02 17:25 | PN ---
DATE: 02/28/2019 PSYCHIATRIC PROGRESS NOTE This late entry 02/28/2019 covers elements not covered in my initial note. SUBJECTIVE: I met with the patient in the evening. The patient's tentative discharge was postponed because she is receiving IV fluids due to significant electrolyte imbalance. Dr. Okeefe is coordinating this and the plan is to discharge on 03/01/2019 when she is medically stable. In the meantime, she has been somewhat withdrawn, but no suicidal or homicidal ideation. REVIEW OF SYSTEMS: No CV, , Pulmonary, eye system symptoms on review. MENTAL STATUS EXAM: Reasonably oriented, speech coherent, abstraction fair, computation impaired. Mood is somewhat dysphoric, but improved. No suicidal or homicidal ideation. LABORATORY DATA: Reviewed. IMPRESSION: Unchanged from initial note. PLAN: No change from initial note. MAN Olivia STANLEY MD DR: SHANTEL/laura JOB#: [id number] / [id number]
== END 2019-03-01 18:10 | disposition home or self-care (01) | DRG 885 ==
LOC: GEROPSY 18:23
PROVIDERS: ADMIT Psychiatry & Neurology Psychiatry; ATTEND Psychiatry & Neurology Psychiatry
DX: F31.64 Bipolar disorder, current episode mixed, severe, with psychotic features (principal); N25.1 Nephrogenic diabetes insipidus; N39.0 Urinary tract infection, site not specified; R45.851 Suicidal ideations; N18.2 Chronic kidney disease, stage 2 (mild); F41.9 Anxiety disorder, unspecified; B96.20 Unspecified Escherichia coli [E. coli] as the cause of diseases classified elsewhere; D64.9 Anemia, unspecified; E86.0 Dehydration; F63.9 Impulse disorder, unspecified; G40.909 Epilepsy, unspecified, not intractable, without status epilepticus; G47.30 Sleep apnea, unspecified; Q89.9 Congenital malformation, unspecified; R45.850 Homicidal ideations; Z79.899 Other long term (current) drug therapy; Z87.891 Personal history of nicotine dependence; Z90.711 Acquired absence of uterus with remaining cervical stump; Z90.49 Acquired absence of other specified parts of digestive tract; Z98.51 Tubal ligation status; Z88.0 Allergy status to penicillin; Z88.2 Allergy status to sulfonamides; Z88.8 Allergy status to other drugs, medicaments and biological substances
CPT/HCPCS: 36415; 80048; 80053; 80061; 81001; 82306; 82607; 83036; 83540; 83550; 83735; 84436; 84443; 84480; 85025; 86592; 87086; 87186; Q0162; 97110; 97116; 97530